=== PATIENT | male | born 1955 | race American Indian/Alaskan Native ===

== ENCOUNTER 2016-12-18 10:42 | Inpatient (IN) | payer OTHER ==
[2016-12-18 10:46] VITALS: BMI 25.8
[2016-12-18 11:40] LABS: BASO % 0.6 % (0.0-2.0); EOS # 0.1 K/uL (0.0-0.7); EOS % 1.7 % (0.0-4.0); HEMATOCRIT 38.7 % (35.0-51.0); LYMPH % 28.4 % (20.0-40.0); MEAN CELL VOLUME 87.5 fL (80.0-94.0); MEAN CORPUSCULAR HGB CONC 33.2 g/dL (33.0-37.0); MONO # 0.6 K/uL (0.0-0.8); MONO % 8.3 % (0.0-10.0); RED CELL DISTRIBUTION WIDTH 13.3 % (11.5-14.5); WHITE BLOOD COUNT 6.9 K/uL (4.8-10.8)
[2016-12-18 11:47] LABS: INR 1.1
[2016-12-18 11:51] LABS: CHLORIDE 88 mmol/L (98-107); POTASSIUM 3.5 mmol/L (3.6-5.2); SODIUM 133 mmol/L (132-148)
[2016-12-18 11:53] LABS: ALB/GLOB RATIO 1.2 (1.0-2.1); AST/SGOT 35 U/L (17-59); BILIRUBIN,TOTAL 0.5 mg/dL (0.2-1.3); BLOOD UREA NITROGEN 16 mg/dL (9-20); CARBON DIOXIDE 28 mmol/L (22-30); CHOLESTEROL 169 mg/dL (0-199); GFR AFRICAN-AMERICAN > 60; TOTAL PROTEIN 7.1 g/dL (6.3-8.3)
[2016-12-18 11:54] LABS: ALKALINE PHOSPHATASE 79 U/L (38-126); ALT/SGPT 33 U/L (21-72); CALCIUM 8.9 mg/dl (8.6-10.4)
[2016-12-18 12:12] LABS: GLUCOSE,RANDOM 457 mg/dL (75-110)
[2016-12-18] MEDS ORDERED: Sodium Chloride 0.9% 1,000 ML ONE ×2 (12:21→15:31)
[2016-12-18] MEDS ORDERED: (Novolin R) Insulin Human Regular 100 units/ml vial IV ONE (12:25)
[2016-12-18] MEDS ORDERED: (Novolin R) Insulin Human Regular 100 units/ml vial ONE (12:33)
--- NOTE | 2016-12-18 12:35 | C.PDOC ---
History Of Present Illness Patient is a 61 y/o male, whose PMHx includes HTN, and diabetes, that presents to the ED for evaluation of fluctuating blood pressure for the past few days. Pt states his BP, when measured at home, has been going up and down. Denies following up with PMD in several years. Notes feeling weaker than usual for the last 2 months. Pt reports right sided weakness. Of note, pt walks with cane/ walker. As per , pt has been less responsive than usual. Otherwise, denies any headache, dizziness, numbness, chest pain, shortness of breath, abdominal pain, or any other related symptoms at this time. Patient is hypertensive, and hyperglycemic upon arrival. Time Seen by Provider: 12/18/16 10:56 Chief Complaint (Nursing): Weakness/Neurological Deficit History Per: Patient History/Exam Limitations: no limitations Onset/Duration Of Symptoms: Days Current Symptoms Are (Timing): Still Present Severity: None Pain Scale Rating Of: 0 Recent travel outside of the [place]: No Additional History Per: Family () Past Medical History Reviewed: Historical Data, Nursing Documentation, Vital Signs Vital Signs: Last Vital Signs Temp 98.7 F 12/18/16 10:49 Pulse 80 12/18/16 13:07 Resp 12 12/18/16 13:07 BP 175/99 H 12/18/16 13:07 Pulse Ox 99 12/18/16 13:28 - Medical History PMH: HTN Family History: States: Unknown Family Hx - Social History Hx Alcohol Use: No Hx Substance Use: No - Immunization History Hx Tetanus Toxoid Vaccination: No Hx Influenza Vaccination: No Hx Pneumococcal Vaccination: No Review Of Systems Except As Marked, All Systems Reviewed And Found Negative. Constitutional: Positive for: Weakness (generalized weakness). Negative for: Fever, Chills Cardiovascular: Negative for: Chest Pain, Palpitations Respiratory: Negative for: Shortness of Breath Gastrointestinal: Negative for: Nausea, Vomiting, Abdominal Pain Neurological: Positive for: Weakness (right sided). Negative for: Headache, Dizziness Physical Exam - Physical Exam Appears: Chronically Ill Skin: Normal Color, Warm, Dry Head: Atraumatic, Normacephalic Eye(s): bilateral: Normal Inspection, EOMI Ear(s): Bilateral: Normal Nose: Normal Oral Mucosa: Moist Throat: Normal, No Erythema, No Exudate, No Drooling Neck: Normal ROM, Supple Chest: Symmetrical, No Tenderness Cardiovascular: Rhythm Regular Respiratory: Normal Breath Sounds, No Rales, No Rhonchi, No Wheezing Gastrointestinal/Abdominal: Soft, No Tenderness Neurological/Psych: Oriented x3, Normal Speech, Normal Cognition, Normal Cranial Nerves (2-12), No Normal Motor (decreased right lower extremitity), Other (slow to respond; slight right pronator drift) ED Course And Treatment - Laboratory Results Result Diagrams: 12/18/16 11:28 12/18/16 11:28 O2 Sat by Pulse Oximetry: 99 (on RA) Pulse Ox Interpretation: Normal - CT Scan/US Head CT Other Rad Studies (CT/US): Read By Radiologist, Radiology Report Reviewed CT/US Interpretation: FINDINGS: HEMORRHAGE: No acute parenchymal, subarachnoid or extra-axial hemorrhage. BRAIN: Significant diffuse/confluent chronic periventricular white matter ischemic changes are seen extending peripherally into the deep and subcortical white matter both cerebral hemispheres. In addition, there is some extension of these changes into the white matter tracts of both basal nuclei. Multiple chronic bilateral basal nuclei and brainstem lacunar type infarcts also present. . Note that the possibility of a small acute/subacute infarct cannot be excluded based on this study. Moderate -significant generalized volume loss. Mild vascular calcifications are present. VENTRICLES: Ventricles are dilated due to atrophy however there is no evidence of obstructive hydrocephalus. CALVARIUM: No acute calvarial fractures so far as can be seen however note that the frontal calvarium has been partially excluded from the study. PARANASAL SINUSES: Unremarkable as visualized. No significant inflammatory changes. MASTOID AIR CELLS: Unremarkable as visualized. No inflammatory changes. OTHER FINDINGS: None. IMPRESSION: No acute intracranial hemorrhage. No significant diffuse/ confluent white matter ischemic changes with multiple bilateral basal nuclei and brainstem lacunar type infarcts. Note that the possibility of an acute/ subacute infarct cannot be completely excluded based on this study. Moderate to fairly significant generalized volume loss. Progress Note: Labs, EKG, CXR, Head CT ordered and reviewed. Patient was treated with Insulin and Apresoline IVP. Disposition Discussed With : Marla Benavidez - Disposition Disposition: HOSPITALIZED Disposition Time: 14:09 Condition: GUARDED - Clinical Impression Clinical Impression: Weakness of limb, Hypertension, Hyperglycemia - Scribe Statement The provider has reviewed the documentation as recorded by the Ольга Benavidez Provider Attestation: All medical record entries made by the Scribe were at my direction and personally dictated by me. I have reviewed the chart and agree that the record accurately reflects my personal performance of the history, physical exam, medical decision making, and the department course for this patient. I have also personally directed, reviewed, and agree with the discharge instructions and disposition. Decision To Admit - Pt Status Changed To: Hospital Disposition Of: Observation - InPatient: Physician Admission Certification: I certify that this patient requires 2 or more midnights of care for the following reason:: uncontroled HTN, hyperglycemia , possible prior CVA - . Bed Request Type: Regular Patient Diagnosis: Weakness of limb, Hypertension, Hyperglycemia
--- NOTE | 2016-12-18 12:38 | CT ---
PROCEDURE: CT HEAD WITHOUT CONTRAST. HISTORY: weakness, right side X weeks COMPARISON: None available. TECHNIQUE: Axial computed tomography images were obtained through the head/brain without intravenous contrast. Radiation dose: Total exam DLP = 988.12 mGy-cm. FINDINGS: HEMORRHAGE: No acute parenchymal, subarachnoid or extra-axial hemorrhage. BRAIN: Significant diffuse/confluent chronic periventricular white matter ischemic changes are seen extending peripherally into the deep and subcortical white matter both cerebral hemispheres. In addition, there is some extension of these changes into the white matter tracts of both basal nuclei. Multiple chronic bilateral basal nuclei and brainstem lacunar type infarcts also present. . Note that the possibility of a small acute/subacute infarct cannot be excluded based on this study. Moderate -significant generalized volume loss. Mild vascular calcifications are present. VENTRICLES: Ventricles are dilated due to atrophy however there is no evidence of obstructive hydrocephalus. CALVARIUM: No acute calvarial fractures so far as can be seen however note that the frontal calvarium has been partially excluded from the study. PARANASAL SINUSES: Unremarkable as visualized. No significant inflammatory changes. MASTOID AIR CELLS: Unremarkable as visualized. No inflammatory changes. OTHER FINDINGS: None. IMPRESSION: No acute intracranial hemorrhage. No significant diffuse/ confluent white matter ischemic changes with multiple bilateral basal nuclei and brainstem lacunar type infarcts. Note that the possibility of an acute/subacute infarct cannot be completely excluded based on this study. Moderate to fairly significant generalized volume loss.
--- NOTE | 2016-12-18 13:56 | RAD ---
HISTORY: weakness COMPARISON: No prior. FINDINGS: LUNGS: Mild bibasilar atelectasis PLEURA: No significant pleural effusion identified, no pneumothorax apparent. CARDIOVASCULAR: Mild cardiomegaly. . OSSEOUS STRUCTURES: Mild multilevel degenerative spondylosis of the thoracic spine. VISUALIZED UPPER ABDOMEN: Normal. OTHER FINDINGS: None. IMPRESSION: Mild bibasilar atelectasis
[2016-12-18] MEDS ORDERED: Sodium Chloride 0.9% 500 ML IV ONE (14:08)
[2016-12-18 14:47] LABS: DRAW SITE VENOUS; VENOUS BLOOD GAS BASE EXCESS 1.3 mmol/L (0.0-2.0); VENOUS BLOOD GAS PCO2 40 mmHg (40-60); VENOUS BLOOD PH 7.42 (7.32-7.43)
[2016-12-18] MEDS ORDERED: Potassium Chloride 10 mEq ER Tab PO STA (15:21)
--- NOTE | 2016-12-18 15:23 | CP.PCM.HP ---
Past Patient History - Infectious Disease Hx of Infectious Diseases: None - Past Social History Smoking Status: Never Smoked - CARDIAC Hx Hypertension: Yes - PSYCHIATRIC Hx Substance Use: No Meds Allergies/Adverse Reactions: Allergies Allergy/AdvReac Type Severity Reaction Status Date / Time No Known Allergies Allergy Verified 12/18/16 10:45 Results - Vital Signs Recent Vital Signs: Last Vital Signs Temp 98.7 F 12/18/16 10:49 Pulse 74 12/18/16 14:19 Resp 17 12/18/16 14:19 BP 175/93 H 12/18/16 14:19 Pulse Ox 98 12/18/16 14:19 - Labs Result Diagrams: 12/18/16 11:28 12/18/16 11:28 Labs: Laboratory Results - last 24 hr 12/18/16 12/18/16 12/18/16 14:24 14:40 15:08 Puncture Site Venous pO2 40 Johan Test N/a VBG pH 7.42 VBG pCO2 40 VBG HCO3 25.4 VBG O2 Sat (Calc) 81.3 H VBG Base Excess 1.3 POC Glucose (mg/dL) 249 H Serum Ketones Negative
[2016-12-18] MEDS ORDERED: Potassium Chloride 20 mEq/15 ml LIQ UD ONE (15:31)
[2016-12-18] MEDS: Verapamil 240 mg ER Tab PO SCH (17:30)
[2016-12-18] MEDS: Pantoprazole 40 mg EC Tab PO SCH (17:32)
[2016-12-18] MEDS: GlipiZIDE 10 mg SR Tab PO SCH (17:33)
[2016-12-18 18:05] LABS: RBC URINE < 1 /hpf (0-3); URINE BILIRUBIN NEGATIVE (NEGATIVE); URINE BLOOD NEGATIVE (NEGATIVE); URINE COLOR Straw (YELLOW); URINE GLUCOSE (UA) 3+ mg/dL (Normal); URINE KETONE NEGATIVE (NEGATIVE); URINE LEUKOCYTE ESTERASE NEG Leu/uL (Negative); URINE PROTEIN NEGATIVE (NEGATIVE); URINE UROBILINOGEN NORMAL mg/dL (0.2-1.0); WBC URINE 1 /hpf (0-5)
[2016-12-19 06:54] LABS: HOMOCYSTEINE 8.5 umol/L (6.6-14.8)
[2016-12-19 07:50] LABS: FOLATE 17.4 ng/mL
[2016-12-19] MEDS: GlipiZIDE 10 mg SR Tab PO SCH (09:49)
[2016-12-19] MEDS: Pantoprazole 40 mg EC Tab PO SCH (09:49)
[2016-12-19] MEDS: Verapamil 240 mg ER Tab PO SCH (09:49)
[2016-12-19] MEDS: Enoxaparin 40 mg Syringe SC SCH (09:49)
[2016-12-19] MEDS ORDERED: hydrALAZINE 12.5 mg Tab PO SCH ×2 (10:00)
--- NOTE | 2016-12-19 10:35 | CON ---
DATE: 12/19/2016 REASON FOR CONSULTATION: Weakness. ROOM NUMBER: ICU, bed 12. CHIEF COMPLAINT: The patient was brought into [facility] because of weakness. The patient also found to have fluctuating high blood pressure. The patient was brought into ICU for the blood press ure control. From a neurological point of view, I was called in to evaluate him for further manageme nt on his weakness. HISTORY OF PRESENTING ILLNESS: The patient is a 61-year-old, right-handed, male wit h a significant medical history of hypertension, diabetes mellitus, presenting with fluctuant blood p ressure and generalized weakness. He denies any headache. No history of shortness of breath, no his tory of focal weakness, no history of losing balance or loss of consciousness. PAST MEDICAL HISTORY: As stated above. ALLERGIES: No known allergies. PERSONAL HISTORY: Denies smoking or alcohol use. REVIEW OF SYSTEMS: As per H and P. MEDICATIONS: Aspirin, verapamil, Cozaar, Glucotrol, Januvia, HydroDIURIL, Lovenox and Protonix. PHYSICAL EXAMINATION: VITAL SIGNS: Blood pressure 210/180 with mean arterial pressure of 135, respiratory rate 16, tempera ture afebrile. NECK: Supple. No carotid bruit. HEART SOUNDS: Tachycardia. EXTREMITIES: Distal muscle atrophy. NEUROLOGIC EXAMINATION: MENTAL STATUS: He is awake, alert, oriented to person, place, and time. Speech is stuttering speech , probably it is old. Hearing seems to be intact. Good gag. MOTOR: On outstretched hand with eyes closed, no drift noted. Power is symmetric on either side. DEEP TENDON REFLEXES: Right side seems to be hyperreflexic on biceps, brachioradialis, triceps and k nee. Left side 1+. Both ankles are absent. Plantars are downgoing. SENSORY: Responds to pain symmetrically on both sides. Distal sensorimotor neuropathy noted. COORDINATION: [id number] test is intact. GAIT: Deferred at this time. CONCLUSION: Upon reviewing his history and neurological examination, the patient has been presenting with generalized weakness with accelerated hypertension. The current examination does not show any long tract sign, except distal sensorimotor neuropathy, which is probably secondary to his diabetes m ellitus. CT of the head reviewed, showed atrophy and basal ganglia changes, probably old ischemic process. Th at is secondary to small vessel disease. BLOOD WORKUP: WBC 6.9, hemoglobin 12.8, hematocrit 38.7, platelet 219. PT 12.3, INR 1.1, PTT 28. V enous blood gas: 7.42, pO2 40, pCO2 25.1. Sodium 133, potassium 3.5, chloride 88, bicarbonate 28, GFR more than 60, glucose 260, random glucose 457. CRP 4.69. Triglyceride 198, cholesterol 169, LDL 97, HDL 37. Homocysteine 8.5. Urine shows 3+ glucose. RECOMMENDATIONS: Continue aspirin for stroke prophylaxis. Continue statin. We will keep the blood pressure, mean arterial pressure of 100. The patient should have proper diabetic control. The patient also scheduled to have a carotid Doppler, MRI and EEG. The patient will be followed clos brandon with you. Zi Zuniga MD cc: [id number] TT: 12/19/2016 10:34:10 Confirmation # [id number] Dictation # [id number]
--- NOTE | 2016-12-19 16:00 | CP.PCM.CON ---
History of Present Illness - History of Present Illness History of Present Illness: 61-year-old male with history of high blood pressure noncompliance admitted to the hospital with the changing blood pressure on also weakness. Patient is a 61-year-old male also has a history of diabetes hypertension uncontrolled blood pressure. In the emergency room patient was treated, because of the weakness code stroke called, neurology was called Patient is currently awake and responding, he is sitting up in the chair. He denies any chest pain. No nausea vomiting noted currently. Currently scheduled to have the MRI of the brain Medications reviewed reviewed Patient is on verapamil, Cozaar Glucotrol hydrochlorothiazide metoprolol Labs reviewed Patient's blood pressure still elevated, but controlled than before Neurologically currently stable. Alert awake oriented minimal slurred speech noted. CAT scan nonspecific. MRI is pending Currently stable. He will be transferred to telemetry. Assessment the condition: 61-year-old male with history of diabetes hypertension hypercholesterolemia uncontrolled diabetes. Uncontrolled hypertension, causing possibly weakness and the hypertensive encephalopathy. Stable at this time. He will be transferred to floor Past Patient History - Infectious Disease Hx of Infectious Diseases: None - Past Medical History & Family History Past Medical History?: Yes - Past Social History Smoking Status: Never Smoked - CARDIAC Hx Hypertension: Yes - ENDOCRINE/METABOLIC Hx Diabetes Mellitus Type 2: Yes - MUSCULOSKELETAL/RHEUMATOLOGICAL Hx Falls: Yes - PSYCHIATRIC Hx Substance Use: No - ANESTHESIA Hx Anesthesia: Yes Hx Anesthesia Reactions: No Hx Malignant Hyperthermia: No Has any member of the family had a problem w/ anesthesia?: No Meds Allergies/Adverse Reactions: Allergies Allergy/AdvReac Type Severity Reaction Status Date / Time No Known Allergies Allergy Verified 12/18/16 10:45 - Medications Medications: Current Medications Aspirin (Aspirin) 325 mg PO DAILY [facility] Last Admin: 12/19/16 09:48 Dose: 325 mg Enoxaparin Sodium (Lovenox) 40 mg SC DAILY [facility] Last Admin: 12/19/16 09:49 Dose: 40 mg Glipizide (Glucotrol Xl) 10 mg PO DAILY [facility] Last Admin: 12/19/16 09:49 Dose: 10 mg Hydralazine HCl (Apresoline) 25 mg PO Q8 [facility] Last Admin: 12/19/16 13:04 Dose: 25 mg Hydrochlorothiazide (Hydrodiuril) 25 mg PO DAILY [facility] Last Admin: 12/19/16 09:50 Dose: Not Given Losartan Potassium (Cozaar) 100 mg PO DAILY [facility] Last Admin: 12/19/16 10:57 Dose: 100 mg Pantoprazole Sodium (Protonix Ec Tab) 40 mg PO DAILY [facility] Last Admin: 12/19/16 09:49 Dose: 40 mg Sitagliptin Phosphate (Januvia) 100 mg PO DAILY [facility] Stop: 12/28/16 15:31 Last Admin: 12/19/16 09:49 Dose: 100 mg Verapamil HCl (Calan Sr Tab) 240 mg PO DAILY [facility] Last Admin: 12/19/16 09:49 Dose: 240 mg Results - Vital Signs Recent Vital Signs: Last Vital Signs Temp 97.4 F L 12/19/16 06:00 Pulse 89 12/19/16 14:02 Resp 15 12/19/16 14:02 BP 145/92 H 12/19/16 14:02 Pulse Ox 97 12/19/16 14:02 - Labs Result Diagrams: 12/18/16 11:28 12/18/16 11:28 Labs: Laboratory Results - last 24 hr 12/19/16 12/19/16 12/19/16 01:44 06:21 07:50 ESR 20 H POC Glucose (mg/dL) 260 H 209 H C-React Prot High Sens 4.69 H Vitamin B12 > 1000 H Folate 17.4 Homocysteine 8.5 Rheum Arthritis Panel Negative NATO 6 Profile Negative 12/19/16 14:10 ESR POC Glucose (mg/dL) 243 H C-React Prot High Sens Vitamin B12 Folate Homocysteine Rheum Arthritis Panel NATO 6 Profile
--- NOTE | 2016-12-19 16:37 | MRI ---
PROCEDURE: MRI BRAIN WITHOUT CONTRAST HISTORY: stroke COMPARISON: None. TECHNIQUE: Multiplanar, multisequence MR images of the brain were obtained without intravenous contrast enhancement. FINDINGS: HEMORRHAGE: None DWI: No evidence of an acute or early subacute infarction. BRAIN PARENCHYMA: No mass effect or edema. Extensive chronic periventricular white matter ischemic disease with multiple lacunar infarcts as well as atrophy noted. VENTRICLES: Unremarkable. No hydrocephalus. CRANIUM: Unremarkable. ORBITS: Grossly unremarkable. PARANASAL SINUSES/MASTOIDS: Clear VASCULAR SYSTEM: Skull base flow voids intact. OTHER FINDINGS: None. IMPRESSION: Extensive chronic periventricular white matter ischemic disease with multiple lacunar infarcts as well as atrophy noted. No evidence of diffusion-weighted abnormality to suggest an acute territorial infarct.
[2016-12-19 16:52] LABS: RAPID PLASMA REAGIN NONREACTIVE (NONREACTIVE)
--- NOTE | 2016-12-19 17:16 | CP.PCM.PN ---
Subjective - Date & Time of Evaluation Date of Evaluation: 12/19/16 Time of Evaluation: 10:20 - Subjective Subjective: clinically same Objective - Vital Signs/Intake and Output Vital Signs (last 24 hours): Temp Pulse Resp BP Pulse Ox 97.4 F L 89 15 145/92 H 97 12/19/16 06:00 12/19/16 14:02 12/19/16 14:02 12/19/16 14:02 12/19/16 14:02 Intake and Output: 12/19/16 12/19/16 06:59 18:59 Intake Total 50 240 Balance 50 240 - Medications Medications: Current Medications Aspirin (Aspirin) 325 mg PO DAILY [facility] Last Admin: 12/19/16 09:48 Dose: 325 mg Enoxaparin Sodium (Lovenox) 40 mg SC DAILY [facility] Last Admin: 12/19/16 09:49 Dose: 40 mg Glipizide (Glucotrol Xl) 10 mg PO DAILY [facility] Last Admin: 12/19/16 09:49 Dose: 10 mg Hydralazine HCl (Apresoline) 25 mg PO Q8 [facility] Last Admin: 12/19/16 13:04 Dose: 25 mg Hydrochlorothiazide (Hydrodiuril) 25 mg PO DAILY [facility] Last Admin: 12/19/16 09:50 Dose: Not Given Losartan Potassium (Cozaar) 100 mg PO DAILY [facility] Last Admin: 12/19/16 10:57 Dose: 100 mg Pantoprazole Sodium (Protonix Ec Tab) 40 mg PO DAILY [facility] Last Admin: 12/19/16 09:49 Dose: 40 mg Sitagliptin Phosphate (Januvia) 100 mg PO DAILY [facility] Stop: 12/28/16 15:31 Last Admin: 12/19/16 09:49 Dose: 100 mg Verapamil HCl (Calan Sr Tab) 240 mg PO DAILY [facility] Last Admin: 12/19/16 09:49 Dose: 240 mg - Labs Labs: PT 12.3 SECONDS (9.7-12.2) H 12/18/16 11:28 INR 1.1 12/18/16 11:28 APTT 28 SECONDS (21-34) 12/18/16 11:28 - Constitutional Appears: Well - Head Exam Head Exam: ATRAUMATIC, NORMAL INSPECTION, NORMOCEPHALIC - Eye Exam Eye Exam: EOMI, Normal appearance, PERRL Pupil Exam: NORMAL ACCOMODATION, PERRL - ENT Exam ENT Exam: Mucous Membranes Moist, Normal Exam - Neck Exam Neck Exam: Full ROM, Normal Inspection. absent: Lymphadenopathy - Respiratory Exam Respiratory Exam: Decreased Breath Sounds - Cardiovascular Exam Cardiovascular Exam: REGULAR RHYTHM, +S1, +S2 - GI/Abdominal Exam GI & Abdominal Exam: Soft, Diminished Bowel Sounds - Rectal Exam Rectal Exam: Deferred
--- NOTE | 2016-12-19 19:27 | CP.PCM.CON ---
History of Present Illness - History of Present Illness History of Present Illness: I was asked to see patient by Dr. Benavidez. Patient is a 61 year old male with a histroy of HNT who presents with altered mental status, HTN and weakness. The patient was admitted as a code stroke. He was managed with oral blood pressure therapy. Echocardiogram was performed and reviewed. Review of Systems - Constitutional Constitutional: absent: As Per HPI, Anorexia, Chills, Daytime Sleepiness, Excessive Sweating, Fatigue, Fever, Frequent Falls, Headache, Increased Appetite , Lethargy, Malaise, Night Sweats, Snoring, Sleep Apnea, Weight Gain, Weight Loss, Weakness, Other - EENT Eyes: absent: As Per HPI, Blind Spots, Blurred Vision, Change in Vision, Decreased Night Vision, Diplopia, Discharge, Dry Eye, Exophthalmos, Floaters, Irritation, Itchy Eyes, Loss of Peripheral Vision, Pain, Photophobia, Requires Corrective Lenses, Sees Flashes, Spots in Vision, Tunnel Vision, Other Visual Disturbances, Loss of Vision, Other Ears: absent: As Per HPI, Decreased Hearing, Ear Discharge, Ear Pain, Tinnitus, Abnormal Hearing, Disequilibrium, Dizziness, Other Nose/Mouth/Throat: absent: As Per HPI, Epistaxis, Nasal Congestion, Nasal Discharge, Nasal Obstruction, Nasal Trauma, Nose Pain, Post Nasal Drip, Sinus Pain, Sinus Pressure, Bleeding Gums, Change in Voice, Dental Pain, Dry Mouth, Dysphagia, Halitosis, Hoarsness, Lip Swelling, Mouth Lesions, Mouth Pain, Odynophagia, Sore Throat, Throat Swelling, Tongue Swelling, Facial Pain, Neck Pain, Neck Mass, Other - Cardiovascular Cardiovascular: absent: As Per HPI, Acrocyanosis, Chest Pain, Chest Pain at Rest , Chest Pain with Activity, Claudication, Diaphoresis, Dyspnea, Dyspnea on Exertion, Edema, Irregular Heart Rhythm, Pain Radiating to Arm/Neck/Jaw, Leg Edema, Leg Ulcers, Lightheadedness, Orthopnea, Palpitations, Paroxysmal Nocturnal Dyspnea, Pedal Edema, Radiating Pain, Rapid Heart Rate, Slow Heart Rate, Syncope, Other - Respiratory Respiratory: absent: As Per HPI, Cough, Dyspnea, Hemoptysis, Dyspnea on Exertion , Wheezing, Snoring, Stridor, Pain on Inspiration, Chest Congestion, Excessive Mucous Production, Change in Mucous Color, Pain with Coughing, Other - Gastrointestinal Gastrointestinal: absent: As Per HPI, Abdominal Pain, Belching, Bloating, Change in Bowel Habits, Change in Stool Character, Coffee Ground Emesis, Constipation, Cramping, Diarrhea, Dyspepsia, Dysphagia, Early Satiety, Excessive Flatus, Fecal Incontinence, Heartburn, Hematemesis, Hematochezia, Loose Stools, Melena, Nausea, Odynophagia, Temesmus, Vomiting, Other - Genitourinary Genitourinary: absent: As Per HPI, Change in Urinary Stream, Difficulty Urinating, Dysuria, Flank Pain, Hematuria, Pyuria, Nocturia, Urinary Incontinence, Urinary Frequency, Urinary Hesitance, Urinary Urgency, Voiding Freq/Small Amts, Freq UTI, Hx Renal/Bladder Calculi, Hx /Renal Surgery, Bladder Distension, Other - Musculoskeletal Musculoskeletal: absent: As Per HPI, Abnormal Gait, Arthralgias, Atrophy, Back Pain, Deformity, Joint Swelling, Limited Range of Motion, Loss of Height, Muscle Cramps, Muscle Weakness, Myalgias, Neck Pain, Numbness, Radiating Pain into Limb, Stiffness, Tingling, Other - Integumentary Integumentary: absent: As Per HPI, Acne, Alopecia, Bleeding Lesions, Change in Hair, Change in Nails, Change in Pigmentation, Changing Lesions, Dry Skin, Erythema, Furuncle, Hirsutism, Lesions, New Lesions, Non-Healing Lesions, Photosensitivity, Pruritus, Rash, Skin Pain, Skin Ulcer, Sores, Striae, Swelling , Unusual Bruising, Wounds, Jaundice, Other - Neurological Neurological: absent: As Per HPI, Abnormal Gait, Abnormal Hearing, Abnormal Movements, Abnormal Speech, Behavioral Changes, Burning Sensations, Confusion, Convulsions, Disequilibrium, Dizziness, Numbness, Focal Weakness, Frequent Falls , Headaches, Lack of Coordination, Loss of Vision, Memory Loss, Paresthesias, Radicular Pain, Restless Legs, Sensory Deficit, Syncope, Tingling, Tremor, Vertigo, Weakness, Other Visual Disturbances, Other - Psychiatric Psychiatric: absent: As Per HPI, Abnormal Sleep Pattern, Anhedonia, Anxiety, Auditory Hallucinations, Behavioral Changes, Change in Appetite, Change in Libido, Confusion, Depression, Difficulty Concentrating, Hallucinations, Homicidal Ideation, Hopelessness, Irritability, Memory Loss, Mood Swings, Panic Attacks, Paranoia, Suicidal Ideation, Visual Hallucinations, Tactile Hallucinations, Other - Endocrine Endocrine: absent: As Per HPI, Change in Body Appearance, Change in Libido, Cold Intolorance, Deepening of Voice, Excessive Sweating, Fatigue, Flushing, Heat Intolorance, Increase in Ring/Shoe/Hat Size, Palpitations, Polydipsia, Polyphagia, Polyuria, Other - Hematologic/Lymphatic Hematologic: absent: As Per HPI, Easy Bleeding, Easy Bruising, Lymphadenopathy, Other Past Patient History - Infectious Disease Hx of Infectious Diseases: None - Past Medical History & Family History Past Medical History?: Yes - Past Social History Smoking Status: Never Smoked - CARDIAC Hx Hypertension: Yes - ENDOCRINE/METABOLIC Hx Diabetes Mellitus Type 2: Yes - MUSCULOSKELETAL/RHEUMATOLOGICAL Hx Falls: Yes - PSYCHIATRIC Hx Substance Use: No - ANESTHESIA Hx Anesthesia: Yes Hx Anesthesia Reactions: No Hx Malignant Hyperthermia: No Has any member of the family had a problem w/ anesthesia?: No Meds Allergies/Adverse Reactions: Allergies Allergy/AdvReac Type Severity Reaction Status Date / Time No Known Allergies Allergy Verified 12/18/16 10:45 - Medications Medications: Current Medications Aspirin (Aspirin) 325 mg PO DAILY [facility] Last Admin: 12/19/16 09:48 Dose: 325 mg Enoxaparin Sodium (Lovenox) 40 mg SC DAILY [facility] Last Admin: 12/19/16 09:49 Dose: 40 mg Glipizide (Glucotrol Xl) 10 mg PO DAILY [facility] Last Admin: 12/19/16 09:49 Dose: 10 mg Hydralazine HCl (Apresoline) 25 mg PO Q8 [facility] Last Admin: 12/19/16 13:04 Dose: 25 mg Hydrochlorothiazide (Hydrodiuril) 25 mg PO DAILY [facility] Last Admin: 12/19/16 09:50 Dose: Not Given Losartan Potassium (Cozaar) 100 mg PO DAILY [facility] Last Admin: 12/19/16 10:57 Dose: 100 mg Pantoprazole Sodium (Protonix Ec Tab) 40 mg PO DAILY [facility] Last Admin: 12/19/16 09:49 Dose: 40 mg Sitagliptin Phosphate (Januvia) 100 mg PO DAILY [facility] Stop: 12/28/16 15:31 Last Admin: 12/19/16 09:49 Dose: 100 mg Physical Exam - Constitutional Appears: Non-toxic - Head Exam Head Exam: NORMAL INSPECTION - Eye Exam Eye Exam: Normal appearance - ENT Exam ENT Exam: Mucous Membranes Moist - Neck Exam Neck exam: Positive for: Full Rom - Respiratory Exam Respiratory Exam: NORMAL BREATHING PATTERN - Cardiovascular Exam Cardiovascular Exam: REGULAR RHYTHM - GI/Abdominal Exam GI & Abdominal Exam: Normal Bowel Sounds - Rectal Exam Rectal Exam: Deferred - Extremities Exam Extremities exam: Positive for: pedal edema - Back Exam Back exam: NORMAL INSPECTION - Neurological Exam Neurological exam: Alert, Oriented x3 - Psychiatric Exam Psychiatric exam: Normal Affect - Skin Skin Exam: Normal Color Results - Vital Signs Recent Vital Signs: Last Vital Signs Temp 98.0 F 12/19/16 16:00 Pulse 86 12/19/16 16:00 Resp 20 12/19/16 16:00 BP 137/81 12/19/16 16:00 Pulse Ox 98 12/19/16 16:00 - Labs Result Diagrams: 12/18/16 11:28 12/18/16 11:28 Labs: Laboratory Results - last 24 hr 12/19/16 12/19/16 12/19/16 01:44 06:21 07:50 ESR 20 H POC Glucose (mg/dL) 260 H 209 H C-React Prot High Sens 4.69 H Vitamin B12 > 1000 H Folate 17.4 Homocysteine 8.5 Rheum Arthritis Panel Negative NATO 6 Profile Negative RPR Nonreactive 12/19/16 12/19/16 14:10 17:09 ESR POC Glucose (mg/dL) 243 H 209 H C-React Prot High Sens Vitamin B12 Folate Homocysteine Rheum Arthritis Panel NATO 6 Profile RPR - EKG Data EKG shows normal: Sinus rhythm Assessment & Plan (1) Hypertension Assessment and Plan: I reviewed the echocardiogram. Left ventricular function is normal and there are no regional wall motion abnormalities. There is evidence of mild left ventricular hypertrophy, likley due to hypertension. Patient is on appropriate medical therapy. I recommend continued meds. Status: Acute
[2016-12-20] MEDS: GlipiZIDE 10 mg SR Tab PO SCH (09:42)
[2016-12-20] MEDS: Pantoprazole 40 mg EC Tab PO SCH (09:42)
[2016-12-20] MEDS: Enoxaparin 40 mg Syringe SC SCH (09:43)
--- NOTE | 2016-12-20 10:18 | PN ---
DATE: 12/20/2016 NEUROLOGICAL PROBLEM: Generalized weakness. PHYSICAL EXAMINATION: VITAL SIGNS: Blood pressure 144/87, mean arterial pressure 106, respiratory rate 20, temperature 98. 3, pulse rate 101. NEUROLOGIC: The patient is sitting comfortably in the chair, more awake, alert, oriented to person, place, and time. Speech is unchanged, same stuttering speech. The rest of the examination is unchan ged to compare with my previous exam. WORKUP: MRI of the brain, periventricular ischemic changes consistent with a small vessel disease an d atrophy. RECOMMENDATIONS: From neurological point of view, his sugar should be controlled. Keep the hemoglob in A1c around 6. Blood pressure should be controlled. Keep the mean arterial pressure around 100. The patient can continue aspirin for stroke prophylaxis at present. The patient will be followed johan melquiades while he is in the hospital. Zi Zuniga MD cc: [id number] TT: 12/20/2016 10:17:47 Confirmation # [id number] Dictation # [id number] anahi
[2016-12-20] MEDS ORDERED: Influenza Virus Vaccine 45 mcg/0.5 ml Syr IM ONE (12:33)
--- NOTE | 2016-12-20 16:39 | CP.PCM.PN ---
Subjective - Date & Time of Evaluation Date of Evaluation: 12/20/16 Time of Evaluation: 10:00 - Subjective Subjective: clinically same Objective - Vital Signs/Intake and Output Vital Signs (last 24 hours): Temp Pulse Resp BP Pulse Ox 97.9 F 97 H 20 112/67 96 12/20/16 15:35 12/20/16 15:35 12/20/16 15:35 12/20/16 15:35 12/20/16 15:35 - Medications Medications: Current Medications Aspirin (Aspirin) 325 mg PO DAILY [facility] Last Admin: 12/20/16 09:42 Dose: 325 mg Enoxaparin Sodium (Lovenox) 40 mg SC DAILY [facility] Last Admin: 12/20/16 09:43 Dose: 40 mg Glipizide (Glucotrol Xl) 10 mg PO DAILY [facility] Last Admin: 12/20/16 09:42 Dose: 10 mg Hydralazine HCl (Apresoline) 25 mg PO Q8 [facility] Last Admin: 12/20/16 14:03 Dose: 25 mg Hydrochlorothiazide (Hydrodiuril) 25 mg PO DAILY [facility] Last Admin: 12/20/16 09:42 Dose: 25 mg Losartan Potassium (Cozaar) 100 mg PO DAILY [facility] Last Admin: 12/20/16 09:42 Dose: 100 mg Pantoprazole Sodium (Protonix Ec Tab) 40 mg PO DAILY [facility] Last Admin: 12/20/16 09:42 Dose: 40 mg Sitagliptin Phosphate (Januvia) 100 mg PO DAILY [facility] Stop: 12/28/16 15:31 Last Admin: 12/20/16 09:42 Dose: 100 mg - Labs Labs: PT 12.3 SECONDS (9.7-12.2) H 12/18/16 11:28 INR 1.1 12/18/16 11:28 APTT 28 SECONDS (21-34) 12/18/16 11:28 - Constitutional Appears: Well - Head Exam Head Exam: ATRAUMATIC, NORMAL INSPECTION, NORMOCEPHALIC - Eye Exam Eye Exam: EOMI, Normal appearance, PERRL Pupil Exam: NORMAL ACCOMODATION, PERRL - ENT Exam ENT Exam: Mucous Membranes Moist, Normal Exam - Neck Exam Neck Exam: Full ROM, Normal Inspection. absent: Lymphadenopathy - Respiratory Exam Respiratory Exam: Decreased Breath Sounds - Cardiovascular Exam Cardiovascular Exam: REGULAR RHYTHM, +S1, +S2 - GI/Abdominal Exam GI & Abdominal Exam: Soft, Diminished Bowel Sounds - Rectal Exam Rectal Exam: Deferred Assessment and Plan - Assessment and Plan (Free Text) Plan: ct neg mri multiple lacunar infact s/p dr. obrien spoke to family still confused on 1 kevin 1 watch anita mx follow up with neuro bp is better
--- NOTE | 2016-12-21 08:04 | CARD ---
APPROVED REPORT EKG Measurement Heart [id number] <Conclusion> Normal sinus rhythm Minimal voltage criteria for LVH, may be normal variant Inferior infarct, age undetermined Abnormal ECG
--- NOTE | 2016-12-21 08:59 | PN ---
DATE: 12/21/2016 NEUROLOGICAL PROBLEM: Weakness. PHYSICAL EXAMINATION: VITAL SIGNS: Blood pressure 103/71, mean arterial pressure of 81, respiratory rate 16, temperature 9 8, pulse rate 97. NEUROLOGIC: The patient is more awake, alert, oriented to person, place, and time. No focal weaknes s. Sensory, motor examination is unchanged to compare with my previous examination. His vital signs are stable at this time. No further workup is needed from neurological point of view . The patient can be discharged when medically stable. Zi Zuniga MD cc: [id number] TT: 12/21/2016 08:58:47 Confirmation # [id number] Dictation # [id number] en
--- NOTE | 2016-12-21 09:09 | CARD ---
APPROVED REPORT EXAM: Two-dimensional and M-mode echocardiogram with Doppler and color Doppler. Other Information Quality : AverageRhythm : NSR RISK FACTORS Hypertension Diabetes M-Mode DIMENSIONS RVDd3.01 (2.1-3.2cm)Left Atrium (MM)4.26 (2.5-4.0cm) IVSd1.13 (0.7-1.1cm)Aortic Root3.36 (2.2-3.7cm) LVDd4.45 (4.0-5.6cm)Aortic Cusp Exc.1.56 (1.5-2.0cm) PWd1.48 (0.7-1.1cm)FS (%) 38 % LVDs2.77 (2.0-3.8cm)LVEF (%)68 (>50%) Aortic Valve AoV Peak Jfhywwrr983.0cm/Kaitlin Peak GR.6mmHg Mitral Valve MV E Fglutrbn68.9cm/sMV A Cyybxlgr562.1cm/sE/A ratio0.4 TDI E/Lateral E'0.0E/Medial E'0.0 Tricuspid Valve TR Peak [id number]/sTR Peak Gr.[id number] <Conclusion> Left ventricle: thickness:uuper limit of normal; size: normal; overall ejection fraction: 65%: diastolic filling pressures: normal Mitral valve: annulus: normal: leaflets: normal: excursion: normal; no significant trans-mitral gradient: No significant incompetence: left atrium: normal Aortic valve: leaflets: mild thickening: excursion: normal; no significant trans-aortic gradient: trace incompetence: aortic root: normal Right sided Structures: Pulmonary valve: normal; no significant incompetence; Tricuspid valve: normal; no significant incompetence: Intra-cardiac hemodynamics: pulmonary systolic pressures: normal; central venous pressures: normal No pericardial effusion
[2016-12-21] MEDS: Enoxaparin 40 mg Syringe SC SCH (10:01)
[2016-12-21] MEDS: GlipiZIDE 10 mg SR Tab PO SCH (10:01)
[2016-12-21] MEDS: Pantoprazole 40 mg EC Tab PO SCH (10:01)
--- NOTE | 2016-12-21 14:49 | VASCLAB ---
PROCEDURE: HISTORY: stenosis?, bruit COMPARISON: None available. TECHNIQUE: Grayscale and duplex Doppler evaluation of the cervical carotid and vertebral arteries were performed. The common carotid, carotid bifurcations and cervical Internal Carotid Artery (ICA) and proximal External Carotid Artery (ECA) were evaluated. The vertebral arteries were evaluated for gross patency and flow direction. Report prepared by Elgin Castaneda, BS, RVT FINDINGS: RIGHT CAROTID ARTERIES: 1. Common Carotid Artery: No significant focal plaque formation of the right common carotid artery. Maximum Peak Systolic velocity: 67 cm/sec: End-diastolic velocity 15 cm/sec. 2. Carotid Bifurcation: Homogeneous plaque formation. Maximum Peak Systolic velocity: 57 cm/sec: End-diastolic velocity 15 cm/sec. 3. Internal Carotid Artery: Plaque description: 3.1. Proximal Segment: Peak systolic velocity 64 cm/sec: End-diastolic velocity 24 cm/sec - % stenosis 0-15% 3.2. Middle Segment: Peak systolic velocity 86 cm/sec: End-diastolic velocity 30 cm/sec - % stenosis 0-15% 3.3. Distal Segment: Peak systolic velocity 64 cm/sec: End-diastolic velocity 18 cm/sec - % stenosis 0-15% 4. External Carotid Artery: No significant focal plaque formation. Peak systolic velocity 65 cm/sec 5. ICA/CCA Ratio: 1.3 LEFT CAROTID ARTERIES: 1. Common Carotid Artery: No significant focal plaque formation of the left common carotid artery. Maximum Peak Systolic velocity: 65 cm/sec: End-diastolic velocity 15 cm/sec. 2. Carotid Bifurcation: Calcific plaque formation. Maximum Peak Systolic velocity: 38 cm/sec: End-diastolic velocity 12 cm/sec. 3. Internal Carotid Artery: Moderate plaque formation of the left proximal ICA which does not results in hemodynamically significant stenosis. Plaque description: Calcific 3.1. Proximal Segment: Peak systolic velocity 71 cm/sec: End-diastolic velocity 27 cm/sec - % stenosis 0-15% 3.2. Middle Segment: Peak systolic velocity 94 cm/sec: End-diastolic velocity 33 cm/sec - % stenosis 0-15% 3.3. Distal Segment: Peak systolic velocity 110 cm/sec: End-diastolic velocity 33 cm/sec - % stenosis 0-15% 4. External Carotid Artery: No significant focal plaque formation. Peak systolic velocity 74 cm/sec 5. ICA/CCA Ratio: 1.7 VERTEBRAL ARTERIES: 1. Right Vertebral Artery: The right vertebral artery flow direction is antegrade. 2. Left Vertebral Artery: The left vertebral artery flow direction is antegrade. OTHER FINDINGS: 1. Right Brachial Blood pressure: mmHg. 2. Left Brachial Blood pressure: mmHg. IMPRESSION: RIGHT: Duplex scan does not suggest hemodynamically significant stenosis of the right extracranial carotid arteries. LEFT: Duplex scan does not suggest hemodynamically significant stenosis of the left extracranial carotid arteries.
--- NOTE | 2016-12-21 14:51 | VASCLAB ---
PROCEDURE: Ultrasonography renal arterial evaluation HISTORY: high bp COMPARISON: None available. TECHNIQUE: Real-time ultrasonography evaluation of the renal arteries were performed. Comparison is made to the aorta. Report prepared by JOSÉ ANTONIO Olson, RVT FINDINGS: AORTA: Patent. Peak systolic velocity 69 centimeters/second RIGHT RENAL ARTERY: Renal artery to aorta ratio: 2.2 * Proximal segment: Patent. Peak systolic velocity 149 centimeters/second * Mid segment: Patent. Peak systolic velocity 140 centimeters/second * Distal segment: Patent. Peak systolic velocity 124 centimeters/second Other findings: Right Kidney measures approximately 11.45 centimeters. LEFT RENAL ARTERY: Renal artery to aorta ratio: 2.0 * Proximal segment: Patent. Peak systolic velocity 135 centimeters/second * Mid segment: Patent. Peak systolic velocity 120 centimeters/second * Distal segment: Patent. Peak systolic velocity 110 centimeters/second Other findings: Left Kidney measures approximately 10.35 centimeters. IMPRESSION: No definite hemodynamically significant stenosis involving the renal arteries as visualized.
--- NOTE | 2016-12-21 18:01 | CP.PCM.PN ---
Subjective - Date & Time of Evaluation Date of Evaluation: 12/21/16 Time of Evaluation: 10:20 - Subjective Subjective: clinically same Objective - Vital Signs/Intake and Output Vital Signs (last 24 hours): Temp Pulse Resp BP Pulse Ox 98.2 F 102 H 20 132/80 98 12/21/16 15:56 12/21/16 15:56 12/21/16 15:56 12/21/16 15:56 12/21/16 15:56 Intake and Output: 12/21/16 12/21/16 06:59 18:59 Output Total 300 Balance -300 - Medications Medications: Current Medications Aspirin (Aspirin) 325 mg PO DAILY [facility] Last Admin: 12/21/16 10:01 Dose: 325 mg Enoxaparin Sodium (Lovenox) 40 mg SC DAILY [facility] Last Admin: 12/21/16 10:01 Dose: 40 mg Glipizide (Glucotrol Xl) 10 mg PO DAILY [facility] Last Admin: 12/21/16 10:01 Dose: 10 mg Hydralazine HCl (Apresoline) 25 mg PO Q8 [facility] Last Admin: 12/21/16 13:30 Dose: 25 mg Hydrochlorothiazide (Hydrodiuril) 25 mg PO DAILY [facility] Last Admin: 12/21/16 10:01 Dose: 25 mg Losartan Potassium (Cozaar) 100 mg PO DAILY [facility] Last Admin: 12/21/16 10:01 Dose: 100 mg Pantoprazole Sodium (Protonix Ec Tab) 40 mg PO DAILY [facility] Last Admin: 12/21/16 10:01 Dose: 40 mg Sitagliptin Phosphate (Januvia) 100 mg PO DAILY [facility] Stop: 12/28/16 15:31 Last Admin: 12/21/16 10:01 Dose: 100 mg - Labs Labs: PT 12.3 SECONDS (9.7-12.2) H 12/18/16 11:28 INR 1.1 12/18/16 11:28 APTT 28 SECONDS (21-34) 12/18/16 11:28 - Constitutional Appears: Well - Head Exam Head Exam: ATRAUMATIC, NORMAL INSPECTION, NORMOCEPHALIC - Eye Exam Eye Exam: EOMI, Normal appearance, PERRL Pupil Exam: NORMAL ACCOMODATION, PERRL - ENT Exam ENT Exam: Mucous Membranes Moist, Normal Exam - Neck Exam Neck Exam: Full ROM, Normal Inspection. absent: Lymphadenopathy - Respiratory Exam Respiratory Exam: Decreased Breath Sounds - Cardiovascular Exam Cardiovascular Exam: REGULAR RHYTHM, +S1, +S2 - GI/Abdominal Exam GI & Abdominal Exam: Soft, Diminished Bowel Sounds - Rectal Exam Rectal Exam: Deferred Assessment and Plan - Assessment and Plan (Free Text) Plan: alert awake and answers all question pt offers no new symptom refsues rehab spoke to with bp better
--- NOTE | 2016-12-22 09:15 | PN ---
DATE: 12/22/2016 NEUROLOGICAL PROBLEM: Weakness. PHYSICAL EXAMINATION: VITAL SIGNS: Blood pressure 132/85, mean arterial pressure 100, respiratory rate 16, temperature 97. 9, pulse rate is 65, regular. NEUROLOGIC: The patient is more awake, alert, oriented to person, place, and time. Speech is unchan ged. The rest of the examination is unchanged. No long tract sign suggestive of central nervous sys tem dysfunction. However, he does have peripheral sensory and motor neuropathy. RECOMMENDATIONS: Got to be out of the bed and physical therapy. From neurological point of view, no further workup is needed. Zi Zuniga MD cc: [id number] TT: 12/22/2016 09:15:30 Confirmation # [id number] Dictation # [id number] an
--- NOTE | 2016-12-22 10:26 | CP.PCM.PN ---
Subjective - Date & Time of Evaluation Date of Evaluation: 12/22/16 Time of Evaluation: 09:00 - Subjective Subjective: Dr. Suresh Benavidez service: Patient seen and examined in room. History limited due to patient's condition. He says he ran out of his blood pressure medication a few weeks ago. He has a history of an old CVA which has caused his speech to be slowed and sometimes diffacult to understand. Objective - Vital Signs/Intake and Output Vital Signs (last 24 hours): Temp Pulse Resp BP Pulse Ox 97.8 F 79 18 144/78 97 12/22/16 07:50 12/22/16 08:00 12/22/16 07:50 12/22/16 07:50 12/22/16 06:12 - Medications Medications: Current Medications Aspirin (Aspirin) 325 mg PO DAILY [facility] Last Admin: 12/21/16 10:01 Dose: 325 mg Enoxaparin Sodium (Lovenox) 40 mg SC DAILY [facility] Last Admin: 12/21/16 10:01 Dose: 40 mg Glipizide (Glucotrol Xl) 10 mg PO DAILY [facility] Last Admin: 12/21/16 10:01 Dose: 10 mg Hydralazine HCl (Apresoline) 25 mg PO Q8 [facility] Last Admin: 12/22/16 06:13 Dose: 25 mg Hydrochlorothiazide (Hydrodiuril) 25 mg PO DAILY [facility] Last Admin: 12/21/16 10:01 Dose: 25 mg Losartan Potassium (Cozaar) 100 mg PO DAILY [facility] Last Admin: 12/21/16 10:01 Dose: 100 mg Pantoprazole Sodium (Protonix Ec Tab) 40 mg PO DAILY [facility] Last Admin: 12/21/16 10:01 Dose: 40 mg Sitagliptin Phosphate (Januvia) 100 mg PO DAILY [facility] Stop: 12/28/16 15:31 Last Admin: 12/21/16 10:01 Dose: 100 mg - Labs Labs: PT 12.3 SECONDS (9.7-12.2) H 12/18/16 11:28 INR 1.1 12/18/16 11:28 APTT 28 SECONDS (21-34) 12/18/16 11:28 - Constitutional Appears: Non-toxic, No Acute Distress - Eye Exam Eye Exam: Normal appearance - Respiratory Exam Respiratory Exam: Clear to Ausculation Bilateral. absent: Rhonchi, Wheezes - Cardiovascular Exam Cardiovascular Exam: REGULAR RHYTHM, RRR, +S1. absent: Gallop, Rubs - GI/Abdominal Exam GI & Abdominal Exam: Soft, Normal Bowel Sounds. absent: Tenderness - Extremities Exam Extremities Exam: Normal Inspection. absent: Pedal Edema - Skin Skin Exam: Normal Color Assessment and Plan (1) Hypertension Assessment & Plan: Patient was discharged today with scripts for HTN medication for 30 days, he is to follow up with PMD for post hospital follow up. He was also given a script for Zocor 20mg Status: Acute (2) Dyslipidemia Assessment & Plan: HDL is below 40, he was given script for Lovaza 1gram to be taken daily. Status: Acute (3) Diabetes mellitus Assessment & Plan: He will continue his DM medication. Status: Acute
[2016-12-22] MEDS: Pantoprazole 40 mg EC Tab PO SCH (10:36)
[2016-12-22] MEDS: GlipiZIDE 10 mg SR Tab PO SCH (10:36)
[2016-12-22] MEDS: Enoxaparin 40 mg Syringe SC SCH (10:37)
[2016-12-22 12:08] LABS: BASO % 0.4 % (0.0-2.0); EOS # 0.1 K/uL (0.0-0.7); EOS % 2.1 % (0.0-4.0); HEMATOCRIT 38.4 % (35.0-51.0); LYMPH # 2.1 K/uL (1.0-4.3); LYMPH % 37.6 % (20.0-40.0); MEAN CELL VOLUME 87.1 fL (80.0-94.0); MEAN CORPUSCULAR HEMOGLOBIN 28.6 pg (27.0-31.0); MEAN CORPUSCULAR HGB CONC 32.9 g/dL (33.0-37.0); MEAN PLATELET VOLUME 8.9 fL (7.2-11.7); MONO # 0.7 K/uL (0.0-0.8); MONO % 11.7 % (0.0-10.0); NRBC % 0.1 % (0.0-2.0); RED CELL DISTRIBUTION WIDTH 13.9 % (11.5-14.5); WHITE BLOOD COUNT 5.6 K/uL (4.8-10.8)
[2016-12-22 12:16] LABS: CHLORIDE 95 mmol/L (98-107); SODIUM 137 mmol/L (132-148)
[2016-12-22 12:17] LABS: POTASSIUM 2.8 mmol/L (3.6-5.2)
[2016-12-22 12:19] LABS: ALB/GLOB RATIO 0.9 (1.0-2.1); ALKALINE PHOSPHATASE 63 U/L (38-126); ALT/SGPT 40 U/L (21-72); AST/SGOT 25 U/L (17-59); BILIRUBIN,TOTAL 0.9 mg/dL (0.2-1.3); BLOOD UREA NITROGEN 30 mg/dL (9-20); CALCIUM 8.8 mg/dl (8.6-10.4); CARBON DIOXIDE 32 mmol/L (22-30); GFR AFRICAN-AMERICAN > 60; GLUCOSE,RANDOM 101 mg/dL (75-110); PHOSPHOROUS 3.5 mg/dL (2.5-4.5); TOTAL PROTEIN 6.9 g/dL (6.3-8.3)
--- NOTE | 2016-12-22 12:42 | CP.PCM.PN ---
Subjective - Date & Time of Evaluation Date of Evaluation: 12/22/16 Time of Evaluation: 10:20 - Subjective Subjective: clinically same Objective - Vital Signs/Intake and Output Vital Signs (last 24 hours): Temp Pulse Resp BP Pulse Ox 97.8 F 79 18 144/78 97 12/22/16 07:50 12/22/16 08:00 12/22/16 07:50 12/22/16 07:50 12/22/16 06:12 - Medications Medications: Current Medications Aspirin (Aspirin) 325 mg PO DAILY [facility] Last Admin: 12/22/16 10:36 Dose: 325 mg Enoxaparin Sodium (Lovenox) 40 mg SC DAILY [facility] Last Admin: 12/22/16 10:37 Dose: 40 mg Glipizide (Glucotrol Xl) 10 mg PO DAILY [facility] Last Admin: 12/22/16 10:36 Dose: 10 mg Hydralazine HCl (Apresoline) 25 mg PO Q8 [facility] Last Admin: 12/22/16 06:13 Dose: 25 mg Hydrochlorothiazide (Hydrodiuril) 25 mg PO DAILY [facility] Last Admin: 12/22/16 10:37 Dose: 25 mg Losartan Potassium (Cozaar) 100 mg PO DAILY [facility] Last Admin: 12/22/16 10:37 Dose: 100 mg Pantoprazole Sodium (Protonix Ec Tab) 40 mg PO DAILY [facility] Last Admin: 12/22/16 10:36 Dose: 40 mg Sitagliptin Phosphate (Januvia) 100 mg PO DAILY [facility] Stop: 12/28/16 15:31 Last Admin: 12/22/16 10:37 Dose: 100 mg - Labs Labs: 12/22/16 11:57 12/22/16 11:57 PT 12.3 SECONDS (9.7-12.2) H 12/18/16 11:28 INR 1.1 12/18/16 11:28 APTT 28 SECONDS (21-34) 12/18/16 11:28 - Constitutional Appears: Well - Head Exam Head Exam: ATRAUMATIC, NORMAL INSPECTION, NORMOCEPHALIC - Eye Exam Eye Exam: EOMI, Normal appearance, PERRL Pupil Exam: NORMAL ACCOMODATION, PERRL - ENT Exam ENT Exam: Mucous Membranes Moist, Normal Exam - Neck Exam Neck Exam: Full ROM, Normal Inspection. absent: Lymphadenopathy - Respiratory Exam Respiratory Exam: Decreased Breath Sounds - Cardiovascular Exam Cardiovascular Exam: REGULAR RHYTHM, +S1, +S2 - GI/Abdominal Exam GI & Abdominal Exam: Soft, Diminished Bowel Sounds - Rectal Exam Rectal Exam: Deferred Assessment and Plan - Assessment and Plan (Free Text) Plan: pt with mutltiple med problem now bp is better but k is low so adv to drink orange juice take bp med will see him in office tomorrow pts fail refused to send pt to rehab [facility] as ordered
[2016-12-22] MEDS ORDERED: Potassium Chloride 20 mEq/15 ml LIQ UD PO SCH (13:15)
[2016-12-22] MEDS: Potassium Chloride 20 mEq ER Tab PO SCH ×3 (14:13→18:08)
[2016-12-22 16:06] VITALS: BP 117/71; PULSE 76; RESP 20; TEMP 98; O2SAT 96
== END 2016-12-22 18:46 | disposition home or self-care (01) | DRG 303 ==
LOC: C.ER 10:42 → C.9E 14:11 → OBSVTOIN 23:43 → C.9I 12-19 01:01 → C.5T 12-19 15:39
PROVIDERS: ADMIT Internal Medicine Nephrology; ATTEND Internal Medicine Nephrology
DX: I87.8 Other specified disorders of veins (principal); E11.65 Type 2 diabetes mellitus with hyperglycemia; I10 Essential (primary) hypertension; I69.220 Aphasia following other nontraumatic intracranial hemorrhage; Z91.19 Patient's noncompliance with other medical treatment and regimen; R73.9 Hyperglycemia, unspecified; I67.4 Hypertensive encephalopathy